=== PATIENT | female | born 1985 | race Caucasian/White ===

== ENCOUNTER 2021-09-23 20:24 | Emergency (ER) | payer SELFPAY ==
[~2021-09-23] VITALS: Ht 154.9 cm; Wt 59.0 kg
--- NOTE | 2021-09-23 20:43 | PHYS DOC ---
Adult General HPI HPI Patient is a 36-year-old female who presents after taking too many hydrocodone's at home. Family called because they said she was really tired and hard to wake up. Patient states that she thinks she took 5 10/325 hydrocodone's to try to get a good buzz. States that they were not her pills they were just laying tahir und the house and they are a bunch of them and she took several not knowing exactly what they were but no she took several hydrocodone's. Denies any IV drug use. States that she did trip and fall earlier in the house but was able to get right back up and had no syncope. Denies any other recent traumas or travels, illnesses, fevers, headache, changes in vision, numbness/weakness/ tingling, trouble sitting, standing or walking, chest pain, shortness of breath, abdominal pain, nausea, vomiting, dysuria, hematuria or blood in stool. Denies any vaginal bleeding, discharge or pain. Denies any known ill contacts. Review of Systems Review of Systems Review of systems otherwise unremarkable except noted in HPI Physical Exam Physical Exam Constitutional: Well developed, well nourished, no acute distress, non-toxic appearance. [] HENT: Normocephalic, atraumatic, bilateral external ears normal, oropharynx moist, no oral exudates, nose normal. [] Eyes: Pupils approximately 3 mm bilaterally and sluggish to light,, EOMI, conjunctiva normal, no discharge. [] Neck: Normal range of motion, no tenderness, supple, no stridor. [] Cardiovascular:Heart rate regular rhythm, no murmur [] Lungs & Thorax: Bilateral breath sounds clear to auscultation [] Abdomen: Bowel sounds normal, soft, no tenderness, no masses, no pulsatile masses. [] Skin: Warm, dry, no erythema, no rash. [] Back: No tenderness, no CVA tenderness. [] Extremities: No tenderness, no cyanosis, no clubbing, ROM intact, no edema. [] Neurologic: GCS of 14, sleepy but easily arousable, no sensory or motor deficits, able to sit, stand and walk without issue, cranial nerves normal Psychologic: Affect normal, judgement abnormal, mood normal. [] EKG EKG [] Radiology/Procedures Radiology/Procedures [] Heart Score C/O Chest Pain: No Risk Factors: Risk Factors: DM, Current or recent (<one month) smoker, HTN, HLP, family history of CAD, obesity. Risk Scores: Risk Factors: DM, Current or recent (<one month) smoker, HTN, HLP, family history of CAD, obesity. Course & Med Decision Making Course & Med Decision Making Patient is a 36-year-old female who presents after taking to many hydrocodone at home and attempt to become intoxicated Vital signs notable for fever and tachycardia.. Physical exam noted above. GCS of 14. Given Narcan with some response. Placed on the monitor with IV access established and IV fluid given. EKG with a rate of 90, QRS of 74, QTc of 430, no STEMI. Troponin slightly elevated at 63 but trended down to 51 which is the cutoff for females normal. Blood cultures obtained, antibiotics given due to Sirs/sepsis on differential diagnosis. Lactate normal however. Laboratory also notable for neutrophilic leukocytosis. Negative flu. Negative rapid Covid. PCR pending. Chest x-ray suggestive of pneumonia. Antibiotics begun in the ED. After significant observation in the emergency department patient awake alert and oriented in no acute distress. Discussed all findings with patient. Patient stated that she had been sick with some cough over the last couple of days and was trying to find some medicine at home to help with her symptoms. States that she did take some hydrocodone that she found at home and some morphine as well but had several other pills at home that she could not remember what they were that she took. States that she was just trying to get high this and help her symptoms. Discussed her diagnosis of pneumonia, and opiate overdose and ingestion of unknown substances and offered to stay in the emergency department for an extended period of time for continued p.o. intake, IV fluids and repeat labs given that her troponin was slightly elevated. Patient stated that she was feeling much better, had an appointment this week with her physician and was ready to just go home eat something and go to bed at her mom's house. Discussed the risks of this including significant illness, increasing or worsening of her symptoms, temporary or permanent disability and even in lower circumstance. Patient stated she understood, was grateful but was feeling well and wanted to go home. [] Dragon Disclaimer Dragon Disclaimer This electronic medical record was generated, in whole or in part, using a voice recognition dictation system. Departure Departure: Impression: Primary Impression: Opiate overdose Additional Impressions: Elevated troponin Fever Pneumonia Disposition: 01 HOME / SELF CARE / HOMELESS Condition: GOOD Referrals: VIKKI LAUGHLIN Patient Instructions: Narcotic Overdose, Pneumonia, Adult, Substance Abuse- Brief Additional Instructions: Thank you for coming into the emergency department tonight and allowing us to take care of you. Please read the attached information carefully to go back over some of the things we discussed. It is very important that you do not take any substances that are not prescribed to prior physician and take them as prescribed when given a prescription to avoid significant illness, disability and . 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 We discussed the risks if you go home including significant illness, worsening of symptoms, temporary or permanent disability and in the worst case scenarios. You stated that you are feeling much better, just overdid it at home and was ready to go home to your mom's house, eat and go to bed. We discussed that you were swabbed for Covid and you need to be quarantined at home until you result comes back. Please follow-up in the morning with your primary care physician to update on your ED visit and set up a follow-up as soon as possible. Please come back with new or concerning symptoms as discussed. You have been tested for or diagnosed with COVID-19. It is an infection caused by a new type of coronavirus. COVID-19 will cause cold-like or mild flu symptoms in most. It can cause more severe symptoms like problems breathing in some. There is no treatment for COVID-19. The body will clear the infection over time. Self-care will help to ease discomfort. Steps to Take: Self-Care Rest as needed. Healthy habits may help you feel better. Steps include: Choose healthy foods including fruits and vegetables. Drink water throughout the day. Get plenty of sleep each night. If you smoke, try to quit. It may ease breathing. Avoid alcohol. Keep Others Healthy The virus can spread to others. Droplets are released every time you sneeze or cough. The droplets can get into the mouth, nose, or eyes of people near you and lead to infection. To lower the chances of spreading COVID-19 to others: Stay at home until your doctor has said it is safe to leave. If you tested positive this will mean staying isolated until both of the following are true: At least 7 days have passed since the start of illness. You are free of fever for at least 72 hours without the use of medicine. During this time: - Avoid public areas, events, or transportation. Do not return to work or school until your doctor has said it is safe to do so. - Call ahead if you need to go to a medical center. Let them know you may have COVID-19. It will help them guide you where to go. They may also ask you to wear a facemask when you come to the office. - If you call for emergency medical services, let them know you may have COVID- 19. While at home: - Try to avoid close contact with others. Stay about 6 feet away. - If possible, spend most of your time in a separate room from others. - Use a face mask if you will be in close contact with others such as sharing a room or vehicle. - Have someone wipe down common surfaces in the home. Use household torpedo man every day on areas like doorknobs, counters, or sinks. - Cough or sneeze into a tissue. Throw the tissue away right after use. If a tissue is not available, cough or sneeze into your elbow. - Wash your hands often. Wash them after sneezing or coughing. Use soap and water and wash for at least 20 seconds. Alcohol based hand diamond cleaner can be used if soap and water is not available. - Do not prepare food for others. Avoid sharing personal items like forks, spoons, or toothbrushes. - Avoid close contact with pets while you are sick. There is no evidence of the virus passing to pets. This is a safety step until more is known about this virus. Isolation can be frustrating. Social interaction can help. Keep in touch with friends and family through phone and tech options. You can still interact with others in your home, just keep a safe distance of about 6 feet. Follow-up: Your doctors office will check in with you to see if there are any changes in your health. You may be asked to keep track of symptoms to share with them. They will also let you know when you are clear to be in public again. Problems to Look Out For: Contact your doctor if your recovery is not going as you expect. Get emergency care if you have problems such as: - Trouble breathing - Nonstop chest pain or pressure - Changes in awareness, confusion, or problems waking - Lips or face have bluish color - Worsening of symptoms If you think you have an emergency, call for emergency medical services right away. As taken from [facility] Levofloxacin (LEVOFLOXACIN) 500 Mg Tablet 1 TAB PO DAILY for PNA for 6 Days, #6 TAB Prov: KAYLEE COOPER MD 09/24/21 Problem Qualifiers KAYLEE COOPER MD Sep 23, 2021 20:43
[2021-09-23] MEDS ORDERED: NALOXONE 0.4 MG/ML VIAL. IV ONE ×2 (20:45→23:00)
[2021-09-23] MEDS ORDERED: NALOXONE 2 MG/2 ML DISP.SYRIN. ONE (20:46)
[2021-09-23 21:15] LABS: ACETAMIN < 2.0 mcg/mL (10-30)
[2021-09-23] MEDS ORDERED: IV RINGERS SOLUTION,LACTATED 1,000 ML IV ONE (21:30)
[2021-09-24] MEDS ORDERED: IV RINGERS SOLUTION,LACTATED 1,000 ML IV ONE ×2 (00:30→01:30)
[2021-09-24 00:50] LABS: BASO # 0.1 x10^3/uL (0.0-0.2); BASO % 0 % (0-3); EOS # 0.1 x10^3/uL (0.0-0.7); EOS % 1 % (0-3); HEMATOCRIT 39.2 % (36.0-47.0); HEMOGLOBIN 12.8 g/dL (12.0-15.5); LYMPH # 2.5 x10^3/uL (1.0-4.8); LYMPH % 18 % (24-48); MEAN CORPUSCULAR HEMOGLOBIN 31 pg (25-35); MEAN CORPUSCULAR HGB CONC 33 g/dL (31-37); MEAN CORPUSCULAR VOLUME 94 fL (79-100); MONO # 0.6 x10^3/uL (0.0-1.1); MONO % 5 % (0-9); NEUT # 10.2 x10^3uL (1.8-7.7); NEUT % 76 % (31-73); PLATELET COUNT 285 x10^3/uL (140-400); RED BLOOD COUNT 4.16 x10^6/uL (3.50-5.40); RED CELL DISTRIBUTION WIDTH 16.6 % (11.5-14.5); WHITE BLOOD COUNT 13.4 x10^3/uL (4.0-11.0)
[2021-09-24 00:59] LABS: CALCIUM 8.2 mg/dL (8.5-10.1); CREATININE 0.7 mg/dL (0.6-1.0); GFR 93.6; POTASSIUM 3.9 mmol/L (3.5-5.1)
[2021-09-24 01:05] LABS: ALBUMIN 3.5 g/dL (3.4-5.0); ALBUMIN/GLOBULIN RATIO 1.2 (1.0-1.7); TOTAL BILIRUBIN 0.5 mg/dL (0.2-1.0); TOTAL PROTEIN 6.5 g/dL (6.4-8.2)
[2021-09-24 01:08] LABS: SALIC 3.4 mg/dL (2.8-20.0)
[2021-09-24 01:09] LABS: ETHANOL < 10 mg/dL (0-10)
--- NOTE | 2021-09-24 01:31 | RAD ---
XR CHEST 1V INDICATION: infection w/u . COMPARISON STUDY: None. FINDINGS: Lungs: Low lung volume. Bilateral perihilar and basilar opacities. Pleura: No pleural effusion or pneumothorax. Heart and Mediastinum: Cardiomegaly. The great vessels of the thorax are normal. IMPRESSION: Bilateral perihilar and basilar opacities, which could represent edema or infection. Electronically signed by: Rey Hartman MD (09/24/2021 1:28 AM) [facility]
[2021-09-24 02:43] LABS: BACTERIA,URINE 0 /HPF (0-FEW); BARBITURATES NEG (NEG); BENZODIAZEPINES NEG (NEG); BILIRUBIN,URINE NEG (NEG); CANNABINOIDS NEG (NEG); CLARITY,URINE CLEAR; COCAINE NEG (NEG); COLOR,URINE YELLOW; GLUCOSE,URINE NEG (NEG); METHADONE NEG (NEG); NITRITE,URINE NEG (NEG); OPIATES POS (NEG); PHENCYCLIDINE NEG (NEG); RBC,URINE 0 /HPF (0-2); SQUAMOUS EPITHELIAL CELL,UR MOD /LPF; UROBILINOGEN,URINE 0.2 mg/dL (0.2 mg/dL); WBC,URINE RARE /HPF (0-4)
[2021-09-24 02:44] LABS: AMPHETAMINE/METHAMPHETAMINE NEG (NEG)
[2021-09-24 02:57] LABS: INFLUENZA A PATIENT NEGATIVE (NEGATIVE); INFLUENZA B PATIENT NEGATIVE (NEGATIVE)
[2021-09-24] MEDS ORDERED: IV DEXTROSE 5% - 0.9 % NACL 1,000 ML IV ONE (04:30)
--- NOTE | 2021-09-24 04:35 | RAD ---
CT HEAD/BRAIN WO Date: 09/24/2021 4:09 AM Clinical Indication: Reason: fall / Spl. Instructions: / History: Comparison: None. Technique: 5 mm axial tomographic images were obtained of the head without contrast. These were view ed on brain and bone windows. One or more of the following dose reduction techniques were utilized: A utomated exposure control (AEC), Adjustment of mA and/or kV according to patient size, Use of iterati ve reconstruction technique such as ASiR, CT scan done according to ALARA and image gently/image guallpa ly Findings: The brain parenchyma is normal in attenuation. No intra- or extra-axial mass or fluid collection. No acute hemorrhage. The ventricles are normal in size, shape, and morphology. The sheets-white matter sandie ction is normal. The subarachnoid cisterns are patent. The visualized paranasal sinuses are normal. The visualized portions of the orbits and globes are no rmal. The mastoid air cells are clear. The snow groomer topogram shows no lytic lesion or fracture. Impression: No acute intracranial process. Electronically signed by: Rey Hartman MD (09/24/2021 4:33 AM) [facility]
[2021-09-24 05:28] VITALS: BP 94/57
[2021-09-24] MEDS ORDERED: LEVO500T9 PO (05:49)
--- NOTE | 2021-09-24 08:23 | EKG ---
[address] [address] Test Date: 2021-09-24 Test Time: 00:53:20 Pat Name: GENEVIEVE LAU Department: Room: Gender: F Rn Anesthesiology: [place] : 1985 Requested By: KAYLEE COOPER Order Number: [id number] Reading MD: Measurements Intervals [place] Rate: 90 P: 37 OR: 150 QRS: 50 QRSD: 74 T: 62 QT: 348 QTc: 430 Interpretive Statements SINUS RHYTHM NORMAL ECG RI6.02 No previous ECG available for comparison
== END 2021-09-24 10:46 | disposition home or self-care (01) ==
LOC: ER 20:24
DX: T40.2X1A Poisoning by other opioids, accidental (unintentional), initial encounter (principal); J18.9 Pneumonia, unspecified organism; R77.8 Other specified abnormalities of plasma proteins; Z20.822 Contact with and (suspected) exposure to COVID-19; Y92.89 Other specified places as the place of occurrence of the external cause
CPT/HCPCS: 36415; 51702; 70450; 71045; 80053; 80307; 80329; 81001; 82550; 82947; 83605; 84484; 85025; 85651; 86140; 87040; 87426; 87804; 93005; 96361; 96365; 96375; 96376; 99285; C9803; G0480; J1956; J2310; J7042; J7120; U0003